=== PATIENT | male | born 1970 | race African-American/Black ===

== ENCOUNTER 2018-01-03 13:05 | Emergency (ER) | payer SELFPAY, OTHER | END 2018-01-03 14:09 | disposition home or self-care (01) | LOC: ER 13:05 | DX: H92.01 Otalgia, right ear (principal); L08.9 Local infection of the skin and subcutaneous tissue, unspecified; F41.9 Anxiety disorder, unspecified; F32.9 Major depressive disorder, single episode, unspecified; G89.29 Other chronic pain; F43.10 Post-traumatic stress disorder, unspecified | CPT/HCPCS: 99283 ==

== ENCOUNTER → 2018-06-04 | Emergency (ER) | payer SELFPAY ==
[2018-01-03 13:17] VITALS: BP 137/82
[~2018-06-04] MED LIST: AMOX500T PO; MUPI22OI2 TP; SODIUM PHOSPHATES 19/7GM 133 ML ENEMA. ONE
--- NOTE | 2018-06-05 05:37 | PHYS DOC ---
Past Medical History Past Medical History: Anxiety, Depression Additional Past Medical Histor: PTSD, chronic pain in feet and Rt hip Past Surgical History: Other Additional Past Surgical Histo: Lt foot Alcohol Use: None Drug Use: None Adult General Chief Complaint Chief Complaint: CONSTIPATION HPI HPI Patient is a 47 year old male who presents with constipation. Patient states he has not had a bowel movement over the last 3-4 days. He has the urge to defecate but has been unable to do so. Patient does endorse a prior history of constipation. He complains of some mild abdominal pain and distention. No fever or chills. No nausea or vomiting. He denies urinary symptoms. Review of Systems Review of Systems Constitutional: Denies fever or chills Eyes: Denies change in visual acuity HENT: Denies nasal congestion or sore throat Respiratory: Denies cough or shortness of breath Cardiovascular: No additional information not addressed in HPI GI: as documented above : Denies dysuria or hematuria Musculoskeletal: Denies back pain Integument: Denies rash or skin lesions Neurologic: Denies headache, focal weakness Endocrine: Denies polyuria All other systems were reviewed and found to be within normal limits, except as documented in this note. Allergies Allergies Allergies Coded Allergies Type Severity Reaction Last Updated Verified No Known Drug Allergies 07/28/15 No Physical Exam Physical Exam Constitutional: Well developed, well nourished, no acute distress, non-toxic appearance HENT: Normocephalic, atraumatic, bilateral external ears normal, oropharynx moist Eyes: PERRLA, EOMI, conjunctiva normal Neck: Normal range of motion, no tenderness, supple Cardiovascular:Heart rate regular rhythm, no murmur Lungs & Thorax: Bilateral breath sounds clear to auscultation Abdomen: Bowel sounds normal, soft, no tenderness Skin: Warm, dry, no erythema Neurologic: Alert and oriented X 3 Psychologic: Affect normal EKG EKG [] Radiology/Procedures Radiology/Procedures [] Course & Med Decision Making Course & Med Decision Making Pertinent Labs and Imaging studies reviewed. (See chart for details) He waited in the emergency department for constipation. He was given a fleets enema. Following this, he had a moderate-sized bowel movement. The patient was subjectively improved. He was discharged home and encouraged to take over-the- counter medications for bowel regimen. He was also advised that he could take an enema at home as needed. He was encouraged follow-up with GI physician for any additional concerns or return to the ER for any new or worrisome symptoms Dragon Disclaimer Dragon Disclaimer This electronic medical record was generated, in whole or in part, using a voice recognition dictation system. Departure Departure Referrals: NO PCP (PCP) SEAN RUSSELL DO Jun 05, 2018 05:37
== END ==
LOC: ER 21:47
DX: K59.00 Constipation, unspecified (principal); R14.0 Abdominal distension (gaseous); F41.9 Anxiety disorder, unspecified; F32.9 Major depressive disorder, single episode, unspecified
CPT/HCPCS: 99281